=== PATIENT | male | born 1975 | race Caucasian/White ===

== ENCOUNTER 2016-11-20 00:41 | Observation (INO) | payer OTHER ==
[2016-11-20] VITALS (8 sets, daily range): BP systolic 123–166; BP diastolic 77–103
[~2016-11-20] VITALS: Ht 188 cm; Wt 134.7 kg
--- NOTE | ~2016-11-20 | EKG ---
[address] [place] [address] ELECTROCARDIOGRAM REPORT Name: JAZMÍNPAULINE Lorraine Room #: 209-[facility].#: [id number] Admission: 11/20/16 Attend Phys: Bayron Denton Discharge: Date of : 77 Report #: [id number] THIS REPORT FOR: //name// [facility] ED Test Date: 2016-11-20 Test Time: 01:09:25 Pat Name: PAULINE NOYOLA Department: Room: 209 Gender: M [employer]: CHARISSE : 1975 Requested By: [place] Order Number: [id number] MD: Kade Sofia Measurements Intervals [place] Rate: 69 P: 14 AL: 161 QRS: -8 QRSD: 105 T: 121 QT: 440 QTc: 472 Interpretive Statements Sinus rhythm Consider left atrial enlargement Inferior infarct, 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
[~2016-11-20 00:41] MED LIST: ASPIRIN EC81 M1 PO; ASPIRIN325 PO; GLIPIZIDE PO; JANUMET PO; LIPITOR20 MG PO; NICOTINE TRANSD14 M1 TD; PROTONIX40 M2 PO; PROZAC40 MG PO; QUINAPRIL PO; TOPROL XL PO
[2016-11-20 01:39] LABS: HEMATOCRIT 39.4 % (42.0-52.0); HEMOGLOBIN 13.6 gm/dL (14.0-18.0); MCH 30.2 pg (26.0-34.0); MCHC 34.5 g/dL (28.0-37.0); MCV 87.7 fL (80.0-100.0); PLATELET COUNT 170 thou/uL (150-400); RBC 4.49 mil/uL (4.50-6.00); RDW 14.6 % (10.5-14.5); WBC 5.8 thou/uL (4.0-11.0)
[2016-11-20 01:41] LABS: MANUAL DIFF YES
[2016-11-20 01:43] LABS: ANION GAP 12 mmol/L (7-16); BUN 11 mg/dL (7-18); CALCIUM 8.5 mg/dL (8.5-10.1); CHLORIDE 102 mmol/L (98-107); CO2 24 mmol/L (21-32); CREATININE 0.8 mg/dL (0.7-1.3); GLUCOSE 135 mg/dL (74-106); SODIUM 138 mmol/L (136-145)
[2016-11-20 01:54] LABS: APTT 29.1 Seconds (24.5-32.8); PROTIME 9.9 Seconds (9.3-11.4)
[2016-11-20 02:02] LABS: ALBUMIN 3.2 g/dL (3.4-5.0); ALKALINE PHOSPHATASE 98 U/L (46-116); CK-MB MASS < 0.5 ng/mL (<0.5-3.6); MAGNESIUM 1.8 mg/dL (1.8-2.4); NT-PRO BRAIN NAT PEPTIDE 876 pg/mL (<300); SGOT 23 U/L (15-37); SGPT 24 U/L (30-65); TOTAL BILIRUBIN 0.4 mg/dL (<0.1-1.0); TOTAL PROTEIN 7.4 g/dL (6.4-8.2)
[2016-11-20 02:13] LABS: TROPONIN-I 1.06 ng/mL (<0.04-0.07)
[2016-11-20 02:17] LABS: ABSOLUTE NEUTROPHILS 4.1 thou/uL (1.4-8.2); ANISOCYTOSIS SLIGHT; TOTAL CELL COUNT 100
[2016-11-20] MEDS ORDERED: AMLODIPINE BESY10 MG PO (06:24)
[2016-11-20] MEDS ORDERED: LISINOPRIL20 MG PO (06:25)
[2016-11-20] MEDS ORDERED: GLUCOPHAGE XR500 MG PO ×2 (06:27→06:28)
[2016-11-20] MEDS ORDERED: NITROGLYCERIN0.4 MG SUBLING (06:28)
[2016-11-20] MEDS ORDERED: NORCO 10-325 T1 EACH PO (06:29)
[2016-11-20] MEDS ORDERED: COLACE100 MG PO (06:30)
[2016-11-20] MEDS ORDERED: PLAVIX 75 MG TA75 M1 PO (06:30)
[2016-11-20] MEDS ORDERED: NEURONTIN600 MG PO (06:32)
[2016-11-20] MEDS ORDERED: VISTARIL 25 MG25 M1 PO (06:33)
[2016-11-20] MEDS ORDERED: AMARYL4 MG PO (06:33)
[2016-11-20] MEDS ORDERED: LOPRESSOR25 PO (06:34)
[2016-11-20] MEDS ORDERED: TRAZODONE HCL100 MG PO (06:35)
[2016-11-20] MEDS ORDERED: WELLBUTRIN XL150 MG PO (06:35)
[2016-11-20] MEDS ORDERED: SEROQUEL 50 MG50 MG PO (06:35)
[2016-11-20 07:48] LABS: TROPONIN-I 0.97 ng/mL (<0.04-0.07)
[2016-11-20 08:17] LABS: CHOLESTEROL 117 mg/dL (<200); HDL CHOLESTEROL 25 mg/dL (>40); LDL CHOLESTEROL 74 mg/dL (<100); TC:HDL 4.7 Ratio (Not establshd); TRIGLYCERIDE 93 mg/dL (<150); VLDL 19 mg/dL (<40)
[2016-11-21 05:44] VITALS: BP 132/78
[2016-11-21 08:00] VITALS: BP 133/77
[2016-11-21 11:15] VITALS: BP 127/78
[2016-11-21] MEDS ORDERED: RANEXA500 MG PO (12:18)
[2016-11-21] MEDS ORDERED: IMDUR 30 MG TAB30 M1 PO (12:18)
[2016-11-21 12:30] VITALS: BP 133/77
== END 2016-11-21 14:40 | disposition home or self-care (01) ==
LOC: ER 00:41 → 2N 02:38 → EROBS 02:38 → 2N 03:11
PROVIDERS: Emergency Medicine
DX: I25.10 Atherosclerotic heart disease of native coronary artery without angina pectoris (principal); I21.4 Non-ST elevation (NSTEMI) myocardial infarction; R07.89 Other chest pain; I10 Essential (primary) hypertension; E78.5 Hyperlipidemia, unspecified; E11.9 Type 2 diabetes mellitus without complications; E78.00 Pure hypercholesterolemia, unspecified; Z95.1 Presence of aortocoronary bypass graft; Z72.0 Tobacco use; Z72.89 Other problems related to lifestyle